=== PATIENT | male | born 1945 | race Caucasian/White ===

== ENCOUNTER → 2020-11-14 09:22 | Outpatient (BNVA) | payer OTHER, SELFPAY | PROVIDERS: PCP Pediatrics; Visit Provider Specialist | DX: G31.84 Mild cognitive impairment of uncertain or unknown etiology (principal); G24.9 Dystonia, unspecified; F17.210 Nicotine dependence, cigarettes, uncomplicated | CPT/HCPCS: 96116; 99205 ==

== ENCOUNTER → 2024-06-28 12:56 | Outpatient (BNVA) | payer OTHER, SELFPAY | PROVIDERS: PCP Pediatrics; Referring Provider Pediatrics; Visit Provider Psychiatry & Neurology Neurology | DX: G24.3 Spasmodic torticollis (principal); R41.3 Other amnesia; I10 Essential (primary) hypertension; R47.81 Slurred speech | CPT/HCPCS: 36415; 82542; 82565; 83520; 84520 ==

== ENCOUNTER 2024-08-15 13:10 | Outpatient (CLI) | payer MEDICARE, SELFPAY ==
--- NOTE | 2024-08-15 13:24 | USCV_ITS ---
Selvin Mcclellan Age: 78 Gender: M : 1945 Exam Date: 08/15/2024 14:37 Ordering Phys: Chris Ortiz MD Technologist: CHRISTINA [place] [facility] [place]: [place] Risk Factors: Previous Vascular Surgery: Right Brachial BP: / Left Brachial BP: / Right Left Velocity (cm/s) Spectral Plaque Velocity (cm/s) Spectral Plaque Syst/Diast Broadening Syst/Diast Broadening 73.60/ 14.40 Prox CCA 144.70/ 37.50 78.50/ 14.40 Mid CCA 78.30 / 19.50 64.80/ 14.90 Distal CCA 75.00 / 15.60 67.20/ 23.80 Prox ICA 54.40 / 13.10 65.90/ 22.20 Mid ICA 88.10 / 24.40 72.50/ 24.50 Distal ICA 74.00 / 22.60 58.90 ECA 163.10 1.00 ICA/CCA 0.70 Antegrade Vertebral Antegrade 48.70/ 0.00 cm/s 53.80/ 17.80 cm/s Tri Subclavian Tri 97.90 96.50 FINDINGS Comparison: none available. Diffuse intimal thickening within the carotid arteries. Mild calcified plaque in the bifurcations. Antegrade vertebral arteries. Mildly turbulent flow in the ICA's. CONCLUSIONS Bilateral ICA stenosis less than 50%. Diffuse intimal thickening and scattered plaque in the carotid arteries. Dr. Susan Fam DO (Electronically Signed) Final Date: 15 August 2024 15:11 S
--- NOTE | 2024-08-15 13:44 | MR_ITS ---
WS: [id number] MRI HEAD WITH CONTRAST TECHNIQUE: Sagittal T1, T2 axial, T2 axial FLAIR, axial susceptibility weighted imaging, axial diffus ion weighted images, and coronal T2 images were obtained. Pre and post-T1 axial and post T1 coronal i mages. ADC and FSPGR images. CLINICAL INFORMATION: R41.3 - Other amnesia COMPARISON: None. FINDINGS: No evidence of restricted diffusion to suggest acute ischemia. Ventricular system and basal cisterns are patent. Moderate to advanced small vessel changes. Moderate parenchymal volume loss. Normal poste rior fossa. Normal vascular flow voids at the skull base. No extra-axial fluid collections. Paranasal sinuses and mastoid air cells are well aerated. Tiny chronic lacunar infarcts in the yousif radiata, basal ganglia and LEFT thalamus. Mastoid air cells are well aerated. Normal posterior nasopharynx. Few small foci of hemosiderin in the mitch. Normal optic chiasm and pituitary infundibulum. 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 No abnormal gadolinium enhancemen t. Normal dural venous sinuses. MR/MR head wo/w con [id number] IMPRESSION: 1. No evidence of restricted diffusion to suggest acute ischemia. 2. Moderate to advanced small vessel changes with moderate parenchymal volume loss. 3. Chronic lacunar infarcts in the bilateral yousif radiata, basal ganglia and LEFT thalamus. 4. A few tiny foci of hemosiderin in the mitch. 5. No abnormal gadolinium enhancement. 6. 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
[2024-08-15] MEDS: gadobenate dimeglumine 20 mL vial 15 ML IV (14:23)
== END 2024-08-15 13:11 | disposition home or self-care (01) ==
LOC: RAD 13:14
PROVIDERS: PCP Pediatrics; Visit Provider Psychiatry & Neurology Neurology
DX: I65.23 Occlusion and stenosis of bilateral carotid arteries (principal); R41.3 Other amnesia; R93.1 Abnormal findings on diagnostic imaging of heart and coronary circulation; R93.0 Abnormal findings on diagnostic imaging of skull and head, not elsewhere classified; I63.81 Other cerebral infarction due to occlusion or stenosis of small artery; G31.9 Degenerative disease of nervous system, unspecified
CPT/HCPCS: 70553; 93880